=== PATIENT | female | born 1975 | race Caucasian/White ===

== ENCOUNTER 2017-06-05 07:11 | Inpatient (IN) | payer BC ==
[~2017-06-05] VITALS: Ht 162.6 cm; Wt 96.6 kg
--- NOTE | ~2017-06-05 | CT4 ---
[facility] Service of [facility] RADIOLOGY TEXT RESULTS PATIENT: STUART ZEE LOCATION: [facility] : [birth year] UNIT #: [id number] AGE: [address]: Corine Clifton MD SEX: F ORDER DR: [id number] [facility] [address] [place], [place] [address] [id number] MR#: [id number] #: [id number] NAME: STUART ZEE : 1975 SEX: F STUDY DATE/TIME: 06/05/2017 8:10 UNIT: PETER ROOM: STUDY DESCRIPTION: CT Abd and Pelv Wo Cont Attending Physician: Aditi Blake P.A.-C. Ordering Physician: Aditi Blake P.A.-C. Primary Care Physician: Jose Arenas M.D. MEDICAL IMAGING REPORT This report is preliminary unless electronic signature is present EXAM CT of the abdomen and pelvis, 06/05/2017 HISTORY Left-sided abdominal pain. Pelvic pain since last night. TECHNIQUE CT of the abdomen and pelvis performed without administration of oral or intravenous contrast. This CT exam was performed with one or more of the following radiation dose reduction techniques: automatic exposure control, adjustment of mA and/or kV according to patient size, and iterative reconstruction. FINDINGS Suboptimal examination in the absence of intravascular and enteric contrast. Comparison 08/24/2007. The study also degraded by streak artifact from clothing not removed prior to examination. Minimal dependent atelectasis in the lungs. Tiny calcified granuloma in the right lower lobe. The inferior heart and pericardium are unremarkable. The liver and gallbladder are unremarkable. The spleen, pancreas, adrenal glands, kidneys unremarkable. CT PELVIS: No inguinal adenopathy. Status post hysterectomy. The patient retains bilateral ovaries. There is an approximately 1.0 cm cyst on the left ovary, likely the dominant follicle for this menstrual cycle. No free fluid in the pelvis. There is no pelvic or retroperitoneal adenopathy. There are small retroperitoneal nodes. Distal esophagus, stomach, small bowel, unremarkable. The patient is status post appendectomy. Colon normal to the level of the proximal sigmoid colon. There is an inflamed diverticulum along the left superolateral aspect of the proximal sigmoid colon. There is an 8.0 cm in length segment of STS. [facility] A Service of [facility] & [facility] RADIOLOGY TEXT RESULTS PATIENT: STUART ZEE LOCATION: [facility] : [birth year] UNIT #: [id number] AGE: [address]: Corine Clifton MD SEX: F ORDER DR: proximal sigmoid colon showing circumferential mural thickening with adjacent fat inflammatory change. Findings most consistent with acute diverticulitis. There is no obstruction, free air, fluid collection or abscess. Follow-up imaging after treatment strongly recommended to confirm resolution of wall thickening and to exclude underlying mass lesion. Suspicion for underlying mass lesion very low. The vascular structures are unremarkable. Bony structures are unremarkable. IMPRESSION 1. Acute sigmoid diverticulitis. Approximately 8.0 cm long segment of proximal sigmoid colon demonstrating mural thickening and adjacent inflammatory change in the perisigmoidal fat. At least one clearly inflamed diverticulum is seen. There is no free air, fluid collection or abscess. No obstruction. Follow-up imaging after treatment for diverticulitis strongly recommended to confirm resolution of wall thickening. Remainder of colon unremarkable. 2. No other acute abnormalities. 3. Status post hysterectomy. 4. See remainder of findings in body of report above. Dictated by... Marcin Guzman M.D. THIS IS AN ELECTRONICALLY VERIFIED REPORT Marcin Guzman M.D. at 06/06/2017 9:43 PM Tere TD: 06/05/2017 13:59 JOB #: [id number] MEDICAL IMAGING REPORT Page 1 of 1 COPY
--- NOTE | ~2017-06-05 | HP ---
Unit #: [id number] #: [id number] Patient: STUART ZEE [id number] [facility]. [place], [place] [address] [id number] E MR#: [id number] NAME: STUART ZEE ROOM: Age: 42 Sex: F Admission Date: 06/05/2017 : 1975 Attending Physician: Aditi Blake P.A.-C. Primary Care Physician: Jose Arenas M.D. HISTORY AND PHYSICAL CHIEF COMPLAINT Abdominal pain. HISTORY OF PRESENT ILLNESS The patient is a 42-year-old female with past medical history of hypertension who presented to the emergency department for evaluation of the above. The patient states that she was in her usual state of health until the evening prior to admission around 10 when she experienced abdominal pain. She states that the pain is in the left lower abdomen. She states that it was initially sharp but is now dull. It has been fairly constant in nature. There are no exacerbating or alleviating factors. She denies any vomiting. No diarrhea. Her last bowel movement was today. She has had fever and chills. She states that her temperature was 101 yesterday. She denies any chest pain. No cough or cold symptoms. She did note that her urine was malodorous. In the emergency department initial pulse and blood pressure were 124 and 122/78. Blood pressure dropped to 97/53 during the course of her evaluation in the emergency department. A CT of the abdomen and pelvis was done and showed findings consistent with acute sigmoid diverticulitis. Also of note, white blood cell count is 15.4. She was given 1 liter of normal saline, 30 mg of Toradol, 4 mg of Zofran, 1 gram of Rocephin, 3.375 grams of Zosyn, as well as 2 grams of vancomycin in the emergency department. She is being admitted to [facility] for evaluation and further treatment. PAST MEDICAL HISTORY Hypertension. PAST SURGICAL HISTORY 1. Right hand surgery. 2. Appendectomy. 3. Tonsillectomy. 4. Hysterectomy. 5. Surgery involving the lip and nose. SOCIAL HISTORY The patient lives with her . She does office work. There is no tobacco or alcohol use. FAMILY HISTORY Notable for her mother having thyroid issues, as well as hypertension and Unit #: [id number] #: [id number] Patient: STUART ZEE A hyperlipidemia. Her dad has diabetes. ALLERGIES Sulfa. HOME MEDICATIONS 1. Lisinopril/Hydrochlorothiazide 20/25 daily. 2. Zyrtec 10 mg daily. REVIEW OF SYSTEMS A complete review of systems is negative except as indicated in the HPI. The patient states that she has had a colonoscopy with Dr. Chau more than 5 years ago. She thinks she has also had an EGD. PHYSICAL EXAMINATION VITAL SIGNS: Temperature is 98.5, pulse 124, respirations 16, blood pressure 122/78, oxygen saturation 97% on room air. Blood pressure did drop to 97/53; most recently 104/50. GENERAL: The patient is a very pleasant female who is awake and alert, in no acute distress. HEENT: The head is atraumatic. Mucous membranes are moist. NECK: Supple. Trachea is midline. CARDIOVASCULAR: Regular rate and rhythm. RESPIRATORY: Lungs are clear to auscultation bilaterally with no increased work of breathing. ABDOMEN: Abdomen is soft. She is tender to palpation in the left lower quadrant. Bowel sounds are somewhat decreased. EXTREMITIES: Extremities are nontender with no pedal edema. NEUROLOGIC: The patient is awake and alert. She follows commands. PSYCHIATRIC: Mood and affect are normal. The patient is cooperative. SKIN: Skin of examined areas is warm and dry. DIAGNOSTIC TESTS CARDIOVASCULAR: EKG showed sinus tachycardia with a rate of 101 beats per minute. IMAGING: CT of the abdomen and pelvis shows findings concerning for acute sigmoid diverticulitis. LABORATORY: Complete blood count notable for white blood cell count of 15.4. Urinalysis notable for 2+ leukocyte esterase, 25-50 white blood cells, 1+ bacteria. Comprehensive metabolic panel notable for glucose of 116. Amylase and lipase are normal. ASSESSMENT 1. The patient is a 42-year-old female with acute diverticulitis. The patient received vancomycin and Zosyn in the emergency department. 2. Urinary tract infection. The patient received Rocephin in the emergency department. 3. Sepsis with pending lactic acid. 4. Hypertension. PLAN 1. Admit to intermediate level. 2. Normal saline at 125 mL an hour. 3. NPO except ice chips. 4. Blood cultures x2. 5. Stool for ova and parasites, C. diff., culture and sensitivity. Unit #: [id number] #: [id number] Patient: STUART ZEE 6. Urine culture and sensitivity on urine in lab. 7. Flagyl and Levaquin pending further workup. 8. Sepsis protocol. 9. Monitor blood pressure closely. 10. Zofran p.r.n. 11. Toradol p.r.n. 12. Repeat labs in the morning. 13. SCDs for DVT prophylaxis. 14. Additional workup and consultants based on above. Dictated by Abbie Colorado/hubert TD: 06/05/2017 11:27 JOB #: [id number] HISTORY AND PHYSICAL Page 1 of 1 X Corine Clifton MD HISTORY AND PHYSICAL
--- NOTE | ~2017-06-05 | DS ---
Unit #: [id number] #: [id number] Patient: STUART ZEE [id number] [address] [place], [place] [address] [id number] I MR#: [id number] NAME: STUART ZEE. ROOM: 456 Age: 42 Sex: F Admission Date: 06/05/2017 : 1975 Discharge Date: 06/07/2017 Attending Physician: Renee Chavez M.D. Primary Care Physician: Jose Arenas M.D. DISCHARGE SUMMARY REASON FOR ADMISSION Abdominal pain. HISTORY OF PRESENT ILLNESS/HOSPITAL COURSE The patient is a very pleasant 42 -year-old female with underlying history of hypertension who presented secondary to abdominal pain while evaluation in the emergency room revealed a CT abdomen and pelvis showing findings consistent with acute sigmoid diverticulitis. Her white blood cell count was noted to be elevated at 15,400. She was also mildly hypotensive. Subsequently, she was admitted, initially placed on sepsis protocol secondary to hypotension as well as elevated white count. Her lactic acid level, however, was normal. Sepsis protocol was subsequently discontinued. Blood cultures did not yield an acute bacterial growth. Her white count did trend downwards this morning. it is currently 6.9. Her hemoglobin is 11.5, likely representing a baseline. Initially, urinalysis also raised a possibility of UTI. However, final urine culture result did not reveal any acute bacterial growth. She did have mildly elevated blood sugar/borderline hemoglobin A1c, however, was 5.2%. No clinical evidence of diabetes. The patient has responded well to IV antibiotics. Her white count has trended down. She was able to now tolerate diet well. Therefore, she will be transitioned and/or discharged home on Cipro as well as Flagyl in consideration of her abnormal CT showing acute sigmoid diverticulitis approximately 8 cm of the long segment of mural thickening and adjacent inflammatory changes. Followup CT abdomen pelvis at approximately 46 weeks as well as outpatient GI consultation for consideration of colonoscopy should be considered. This has been conveyed to the patient at the time of discharge, and she expressed understanding and agreement. FINAL DISCHARGE DIAGNOSES 1. Acute sigmoid diverticulitis/colitis. 2. Anemia based on hemoglobin 11.5. 3. Hypertension. FINAL DISCHARGE MEDICATIONS 1. Cipro 500 mg p.o. b.i.d. x10 days. 2. Flagyl 500 mg p.o. q. 8 x10 days. 3. Zyrtec 10 mg p.o. q.a.m. 4. Pepcid 20 mg p.o. b.i.d. 5. Please note the patient's blood pressure medications were Unit #: [id number] #: [id number] Patient: STUART ZEE A discontinued at the hospital admission secondary to a decreased and/or a low blood pressure. They may be resumed at a later point in time by the patient's primary care physician. Dictated by... Abbie Downey/samuel TD: 06/10/2017 07:26 JOB #: [id number] DISCHARGE SUMMARY Page 1 of 1 X Renee Chavez MD X DISCHARGE SUMMARY
--- NOTE | ~2017-06-05 | EKG ---
PATIENT: STUART ZEE UNIT #: [id number] Ventricular Rate: 101 BPM Atrial Rate: 101 BPM P-R Interval: 144 ms QRS Duration: 90 ms Q-T Interval: 352 ms QTC Calculation(Bezet): 456 ms P [place]: 52 degrees Calculated R [place]: 47 degrees Calculated T [place]: 30 degrees Diagnosis Line: Sinus tachycardia Diagnosis Line: Otherwise normal ECG Diagnosis Line: When compared with ECG of 28-DEC-2013 06:25, Diagnosis Line: No significant change was found Diagnosis Line: Confirmed by RACIEL ALANIZ MD ([id number]) on 06/05/2017 Diagnosis Line: 5:00:14 PM INTERPRETING MD: KATTY HILLS
[~2017-06-05 07:11] MED LIST: ACETAMINOPHEN PR; HYZAAR PO; MEDI-MECLIZINE25 M1 PO; PHENERGAN12.5 MG PO; ZYRTEC PO
[2017-06-05 08:05] LABS: URINE SOURCE CLEAN CATCH
[2017-06-05 08:07] LABS: BASOPHIL# 0.1 X10e3 (0-0.3); BASOPHIL% 0.4 % (0-2.5); EOSINOPHIL# 0.1 X10e3 (0-0.7); EOSINOPHIL% 0.8 % (0.0-7.0); HEMATOCRIT 39.6 % (35.0-45.0); HEMOGLOBIN 13.3 gm/dL (12.0-16.0); LYMPHOCYTE# 2.8 X10e3 (1.0-3.5); LYMPHOCYTE% 18.5 % (17.0-45.0); MEAN CELL VOLUME 87.5 FL (83-96); MEAN CORPUSCULAR HEMOGLOBIN 29.5 PG (28-34); MEAN CORPUSCULAR HGB CONC 33.7 g/dL (30-36); MEAN PLATELET VOLUME 8.4 FL (6.5-11.5); MONOCYTE# 1.1 X10e3 (0-1.0); MONOCYTE% 7.4 % (3.0-12.0); NEUTROPHIL# 11.2 X10e3 (1.5-7.1); NEUTROPHIL% 72.9 % (40-75); PLATELET COUNT 233 X10e3 (140-420); RED BLOOD COUNT 4.52 X10e (3.90-5.30); RED CELL DISTRIBUTION WIDTH 12.6 % (11.0-15.5); WHITE BLOOD COUNT 15.4 X10e3 (4.0-10.5)
[2017-06-05 08:08] LABS: DIFF IND YES
[2017-06-05 08:09] LABS: URINE APPEARANCE CLEAR; URINE BILIRUBIN NEG (NEG); URINE BLOOD NEG (NEG); URINE COLOR YELLOW; URINE GLUCOSE NEG (NEG); URINE KETONE NEG (NEG); URINE LEUKOCYTE ESTERASE 2+ (NEG); URINE NITRATE NEG (NEG); URINE PROTEIN NEG (NEG); URINE SPECIFIC GRAVITY 1.019 (1.003-1.035); URINE UROBILINOGEN 0.2 MG/DL (NEG)
[2017-06-05 08:13] LABS: CULTURE INDICATED? YES; URINE BACTERIA AUWI 1+ (NEGATIVE); URINE SQUAMOUS EPITHELIAL CELL OCC /[HPF]; UWBCS1 AUWI 25-50 (0-5)
[2017-06-05 08:23] LABS: PLATELET ESTIMATE NORMAL (NORMAL); RBC NORMAL YES
[2017-06-05 09:23] LABS: BILIRUBIN, DIRECT 0.1 mg/dL (0.0-0.2); BILIRUBIN,INDIRECT 0.5 mg/dL (0.0-0.9); BILIRUBIN,TOTAL 0.6 mg/dL (0.2-2.0); BUN/CREATININE RATIO 17.14; CALCIUM SERUM 8.8 mg/dL (8.4-10.2); CREATININE SERUM 0.7 mg/dL (0.6-1.4); GLOM FILT RATE Estimated 105.4 mL/min (>60); POTASSIUM 3.7 mmol/L (3.5-5.1); PROTEIN TOTAL SERUM 7.3 g/dL (6.0-8.3)
[2017-06-05] MEDS ORDERED: PATIENT'S PHARMACY (10:14)
[2017-06-05] MEDS ORDERED: ZESTORETIC 20-1 EAC2 PO (10:14)
[2017-06-05] MEDS ORDERED: ZYRTEC10 M2 PO (10:14)
[2017-06-06 06:05] LABS: HEMATOCRIT 34.4 % (35.0-45.0); HEMOGLOBIN 11.8 gm/dL (12.0-16.0); MEAN CELL VOLUME 88.1 FL (83-96); MEAN CORPUSCULAR HEMOGLOBIN 30.3 PG (28-34); MEAN CORPUSCULAR HGB CONC 34.4 g/dL (30-36); MEAN PLATELET VOLUME 8.2 FL (6.5-11.5); RED BLOOD COUNT 3.91 X10e (3.90-5.30); RED CELL DISTRIBUTION WIDTH 12.9 % (11.0-15.5); WHITE BLOOD COUNT 8.1 X10e3 (4.0-10.5)
[2017-06-06 07:22] LABS: ALBUMIN SERUM 3.2 g/dL (3.5-5.0); BUN/CREATININE RATIO 12.85; CALCIUM SERUM 8.1 mg/dL (8.4-10.2); CREATININE SERUM 0.7 mg/dL (0.6-1.4); GLOM FILT RATE Estimated 105.4 mL/min (>60); POTASSIUM 3.4 mmol/L (3.5-5.1); PROTEIN TOTAL SERUM 5.7 g/dL (6.0-8.3)
[2017-06-07 03:22] LABS: HEMATOCRIT 33.3 % (35.0-45.0); HEMOGLOBIN 11.5 gm/dL (12.0-16.0); MEAN CELL VOLUME 86.8 FL (83-96); MEAN CORPUSCULAR HEMOGLOBIN 29.9 PG (28-34); MEAN CORPUSCULAR HGB CONC 34.4 g/dL (30-36); MEAN PLATELET VOLUME 8.6 FL (6.5-11.5); RED BLOOD COUNT 3.84 X10e (3.90-5.30); RED CELL DISTRIBUTION WIDTH 12.7 % (11.0-15.5); WHITE BLOOD COUNT 6.9 X10e3 (4.0-10.5)
[2017-06-07 03:43] LABS: BUN/CREATININE RATIO 12.5; CALCIUM SERUM 7.7 mg/dL (8.4-10.2); CREATININE SERUM 0.8 mg/dL (0.6-1.4); GLOM FILT RATE Estimated 89.7 mL/min (>60); POTASSIUM 3.3 mmol/L (3.5-5.1)
[2017-06-07] MEDS ORDERED: CIPRO PO (13:46)
[2017-06-07] MEDS ORDERED: FLAGYL PO (13:46)
[2017-06-07] MEDS ORDERED: PEPCID AC20 M2 PO (13:47)
== END 2017-06-07 14:45 | disposition home or self-care (01) | DRG 392 ==
LOC: CED 07:11 → CEDOF 10:00 → CED 10:23 → CEDOF 10:23 → C3A PCU 15:19 → CEDOF 15:19 → C4B 06-06 17:03
PROVIDERS: Family Medicine; Physician Assistant
DX: K57.32 Diverticulitis of large intestine without perforation or abscess without bleeding (principal); I95.9 Hypotension, unspecified; K52.9 Noninfective gastroenteritis and colitis, unspecified; I10 Essential (primary) hypertension; Z90.710 Acquired absence of both cervix and uterus; Z90.49 Acquired absence of other specified parts of digestive tract; Z83.3 Family history of diabetes mellitus; Z82.49 Family history of ischemic heart disease and other diseases of the circulatory system; Z84.89 Family history of other specified conditions; D64.9 Anemia, unspecified
CPT/HCPCS: 36415; 74176; 80048; 80053; 80076; 81003; 82150; 83036; 83605; 83690; 85025; 85027; 87040; 87045; 87086; 87427; 87493; 87899; 93005; 96361; 96365; 96375; 99285; C9113; J0696; J1885; J1956; J2405; J2543; J3370